=== PATIENT | male | born 1960 | race Caucasian/White ===

== ENCOUNTER 2024-09-07 14:19 | Emergency (ER) | payer MEDICARE, MEDICAID ==
[~2024-09-07] VITALS: Ht 175.3 cm; Wt 95.5 kg
[~2024-09-07 14:19] MED LIST: AMLO-257 PO; ATOR40TA71 PO; CARV25 PO; FENO54TA7 PO; HYDR-4808 PO; HYDR25TA PO; LEVO50 PO; LOSA-382 PO; MEMA5TAB41 PO; QUET100T34 PO; VENL-67 PO
[2024-09-07 15:32] LABS: BASOPHILS % (AUTO) 0.7 % (0.0-2.0); EOSINOPHILS % (AUTO) 3.4 % (1.0-6.0); HEMATOCRIT 46.5 % (41-53); HEMOGLOBIN 15.6 g/dL (13.5-17.5); LYMPHOCYTES # (AUTO) 1.5 K/uL (1.0-4.8); LYMPHOCYTES % (AUTO) 17.2 % (22.0-44.0); MEAN CORPUSCULAR HEMOGLOBIN 28.4 pg (26.0-34.0); MEAN CORPUSCULAR HGB CONC 33.5 G/dL (31.0-37.0); MEAN CORPUSCULAR VOLUME 85 fL (80-100); MONOCYTES # (AUTO) 0.7 K/uL (0.1-1.0); NEUTROPHILS % (AUTO) 70.7 % (40.0-70.0); PLATELET COUNT (AUTO) 178 K/uL (150-450); RED BLOOD CELL COUNT(AUTO) 5.48 MIL/uL (4.50-5.90); RED CELL DISTRIBUTION WIDTH 14.5 % (11.5-14.5); WHITE BLOOD COUNT (AUTO) 8.5 K/uL (4.5-11.0)
[2024-09-07 15:36] LABS: ANION GAP 10 mmol/L (8-16); CALCIUM, TOTAL 9.4 mg/dL (8.8-10.5); CARBON DIOXIDE 25 mmol/L (22-29); CHLORIDE 100 mmol/L (98-107); CREATININE 1.28 mg/dL (0.60-1.30); GLOMERULAR FILTR. RATE CALC 57 mL/min (>60); GLUCOSE,RANDOM 132 mg/dL (70-110); POTASSIUM 3.7 mmol/L (3.5-5.1); SODIUM SERUM 135 mmol/L (136-145); UREA NITROGEN, BLOOD 17 mg/dL (7-18)
[2024-09-07 15:39] VITALS: BP 153/93; PULSE 83; RESP 16; TEMP 98; O2SAT 97
[2024-09-07 15:53] LABS: COVID AG,FIA SOURCE NASAL SWAB
[2024-09-07 15:56] LABS: APPEARANCE,URINE CLEAR (CLEAR); BILIRUBIN,URINE NEGATIVE (NEGATIVE); COLOR,URINE COLORLESS (YELLOW); GLUCOSE, URINE (UA) >=1000 mg/dL (NEGATIVE); KETONES,URINE NEGATIVE (NEGATIVE); LEUKOCYTE ESTERASE ,URINE NEGATIVE (NEGATIVE); NITRATE,URINE NEGATIVE (NEGATIVE); OCCULT BLOOD,URINE NEGATIVE (NEGATIVE); PROTEIN,URINE NEGATIVE (NEGATIVE); SPECIFIC GRAVITIY, URINE 1.004 (1.003-1.030); UROBILINOGEN,URINE <=1.0 mg/dL (<=1.0)
[2024-09-07 16:09] LABS: ALCOHOL, BLOOD (SERUM) < 3 mg/dL (0-10)
[2024-09-07 16:09] LABS: AMPHET/METH SCREEN,URINE NEGATIVE (NEGATIVE); BARBITURATE SCREEN, URINE NEGATIVE (NEGATIVE); BENZODIAZEPINES SCREEN,URINE NEGATIVE (NEGATIVE); CANNABINOID SCREEN,URINE NEGATIVE (NEGATIVE); COCAINE SCREEN,URINE NEGATIVE (NEGATIVE); METHADONE SCREEN, URINE NEGATIVE (NEGATIVE); OPIATE SCREEN,URINE NEGATIVE (NEGATIVE); PHENCYCLIDINE SCREEN,URINE NEGATIVE (NEGATIVE)
[2024-09-07 16:10] LABS: ALCOHOL, URINE DRUG SCREEN NEGATIVE (NEGATIVE); BACTERIA,URINE Few /HPF (None Seen); RBC,URINE 0-2 /HPF (0-2); WBC,URINE 0-2 /HPF (0-5)
[2024-09-07 16:11] LABS: SQUAMOUS EPITHELIAL CELL,UR Rare /LPF (None Seen)
[2024-09-07 16:38] LABS: SARS-COV2 (COVID) ANTIGEN,FIA Negative (Negative)
[2024-09-07] MEDS: LORazepam 2 MG TABLET PO ONE (17:58)
[2024-09-07] MEDS: HALOPERIDOL 5 MG TABLET PO ONE (17:58)
[2024-09-07] MEDS: DiphenhydrAMINE HCL 25 MG CAPSULE PO ONE (17:58)
== END 2024-09-07 20:09 | disposition home or self-care (01) ==
LOC: EMS 15:03
DX: F20.0 Paranoid schizophrenia (principal); F03.92 Unspecified dementia, unspecified severity, with psychotic disturbance; Z79.899 Other long term (current) drug therapy; Z20.822 Contact with and (suspected) exposure to COVID-19
CPT/HCPCS: 99284; 87426; 80048; 81001; 85025; 36415; 80307; G0480; 81003

== ENCOUNTER 2024-12-12 18:11 | Inpatient (IN) | payer MEDICARE, MEDICAID ==
[~2024-12-12] VITALS: Ht 177.8 cm; Wt 79.6 kg
[2024-12-12 19:39] LABS: BASOPHILS % (AUTO) 0.8 % (0.0-2.0); EOSINOPHILS % (AUTO) 3.9 % (1.0-6.0); HEMATOCRIT 43.5 % (41-53); HEMOGLOBIN 14.5 g/dL (13.5-17.5); LYMPHOCYTES # (AUTO) 2.1 K/uL (1.0-4.8); LYMPHOCYTES % (AUTO) 18.9 % (22.0-44.0); MEAN CORPUSCULAR HGB CONC 33.2 G/dL (31.0-37.0); MEAN CORPUSCULAR VOLUME 84 fL (80-100); MONOCYTES # (AUTO) 0.8 K/uL (0.1-1.0); NEUTROPHILS # (AUTO) 7.6 K/uL (1.8-7.7); NEUTROPHILS % (AUTO) 69.4 % (40.0-70.0); PLATELET COUNT (AUTO) 152 K/uL (150-450); RED BLOOD CELL COUNT(AUTO) 5.16 MIL/uL (4.50-5.90); RED CELL DISTRIBUTION WIDTH 14.8 % (11.5-14.5); WHITE BLOOD COUNT (AUTO) 10.9 K/uL (4.5-11.0)
[2024-12-12 19:48] LABS: ANION GAP 7 mmol/L (8-16); CALCIUM, TOTAL 8.8 mg/dL (8.8-10.5); CARBON DIOXIDE 24 mmol/L (22-29); CHLORIDE 103 mmol/L (98-107); CREATININE 1.02 mg/dL (0.60-1.30); GLOMERULAR FILTR. RATE CALC > 60 mL/min (>60); GLUCOSE,RANDOM 123 mg/dL (70-110); POTASSIUM 3.7 mmol/L (3.5-5.1); SODIUM SERUM 134 mmol/L (136-145); UREA NITROGEN, BLOOD 16 mg/dL (7-18)
[2024-12-12 21:00] VITALS: O2SAT 96
[2024-12-12 21:35] LABS: COVID AG,FIA SOURCE NASAL SWAB
[2024-12-12 21:40] LABS: APPEARANCE,URINE CLEAR (CLEAR); BILIRUBIN,URINE NEGATIVE (NEGATIVE); COLOR,URINE COLORLESS (YELLOW); GLUCOSE, URINE (UA) NEGATIVE (NEGATIVE); KETONES,URINE NEGATIVE (NEGATIVE); LEUKOCYTE ESTERASE ,URINE NEGATIVE (NEGATIVE); NITRATE,URINE NEGATIVE (NEGATIVE); OCCULT BLOOD,URINE NEGATIVE (NEGATIVE); PROTEIN,URINE NEGATIVE (NEGATIVE); SPECIFIC GRAVITIY, URINE 1.006 (1.003-1.030); UROBILINOGEN,URINE <=1.0 mg/dL (<=1.0)
[2024-12-12 21:43] LABS: AMPHET/METH SCREEN,URINE NEGATIVE (NEGATIVE); BARBITURATE SCREEN, URINE NEGATIVE (NEGATIVE); BENZODIAZEPINES SCREEN,URINE NEGATIVE (NEGATIVE); CANNABINOID SCREEN,URINE NEGATIVE (NEGATIVE); COCAINE SCREEN,URINE NEGATIVE (NEGATIVE); METHADONE SCREEN, URINE NEGATIVE (NEGATIVE); OPIATE SCREEN,URINE NEGATIVE (NEGATIVE); PHENCYCLIDINE SCREEN,URINE NEGATIVE (NEGATIVE)
[2024-12-12 21:45] LABS: ALCOHOL, URINE DRUG SCREEN NEGATIVE (NEGATIVE)
[2024-12-12 21:56] LABS: SARS-COV2 (COVID) ANTIGEN,FIA Negative (Negative)
[2024-12-13] MEDS ORDERED: haloperidoL 5 MG TABLET PO PRN (00:30)
[2024-12-13 02:30] VITALS: BP 140/82; PULSE 53; RESP 18; TEMP 97.3; O2SAT 100
[2024-12-13] MEDS ORDERED: PETROLATUM,WHITE 28 GM JELLY TP PRN (09:30)
[2024-12-13] MEDS: LOSARTAN POTASSIUM 50 MG TABLET PO SCH (09:30)
[2024-12-13] MEDS ORDERED: DOCUSATE SODIUM 100 MG CAPSULE PO PRN (09:30)
[2024-12-13] MEDS ORDERED: BENZOCAINE/MENTHOL [CEPACOL] LOZENGE PO PRN (09:30)
[2024-12-13] MEDS ORDERED: MAGNESIUM HYDROXIDE SUSPENSION 30 ML UDCUP PO PRN ×2 (09:30→10:45)
[2024-12-13] MEDS: AmLODIPine BESYLATE 5 MG TABLET PO SCH (09:30)
[2024-12-13] MEDS ORDERED: ACETAMINOPHEN 325 MG TABLET PO PRN ×2 (09:30→10:45)
[2024-12-13] MEDS ORDERED: MAG HYDROX/ALUMINUM HYD/SIMETH ES 30 ML SUSPENSION UDCUP PO PRN ×2 (09:30→10:45)
[2024-12-13] MEDS ORDERED: ALBUTEROL SULFATE HFA 90 MCG/PUFF 8 GM INHALER IH PRN (09:30)
[2024-12-13] MEDS ORDERED: BACITRACIN 28 GM OINTMENT TP PRN (09:30)
[2024-12-13] MEDS ORDERED: OMEPRAZOLE 20 MG CAPSULE PO PRN (09:30)
[2024-12-13] MEDS ORDERED: IBUPROFEN 600 MG TABLET PO PRN (09:30)
[2024-12-13] MEDS ORDERED: ONDANSETRON 4 MG TABLET PO PRN (09:30)
[2024-12-13] MEDS ORDERED: CloNIDine HCL 0.1 MG TABLET PO PRN (09:30)
[2024-12-13] MEDS ORDERED: LOPERAMIDE HCL 2 MG CAPSULE PO PRN ×2 (09:30→10:45)
[2024-12-13 09:45] VITALS: BP 96/61; PULSE 67; RESP 17; TEMP 97; O2SAT 96
[2024-12-13] MEDS: FENOFIBRATE 54 MG TABLET PO SCH (10:34)
[2024-12-13] MEDS: ATORVASTATIN CALCIUM 40 MG TABLET PO SCH (10:38)
[2024-12-13] MEDS ORDERED: GuaiFENesin/D-METHORPHAN [SUGAR-FREE] 200-20MG/10 ML SYRUP UDCUP PO PRN (10:45)
[2024-12-13] MEDS ORDERED: TUBERCULIN, PURIFIED PROTEIN DERIVATIVE 5 TU/0.1 ML SYRINGE ID ONE (10:45)
[2024-12-13] MEDS ORDERED: PROMETHAZINE HCL 25 MG TABLET PO PRN (10:45)
[2024-12-13] MEDS ORDERED: DEXTROSE 50%-WATER 25 GM/50 ML SYRINGE IVP PRN (11:15)
[2024-12-13] MEDS: INSULIN LISPRO 100 UNITS/ML SQ PRN (16:33)
[2024-12-13 16:41] LABS: GLUCOMETER DEV NAME(LOC) 3EX.2; GLUCOSE,POINT OF CARE 118 MG/DL (70-110)
[2024-12-13] MEDS: MetFORMIN HCL 500 MG TABLET PO SCH (17:23)
[2024-12-13] MEDS: THIAMINE 100 MG TABLET PO SCH (17:23)
[2024-12-13 20:35] LABS: GLUCOMETER DEV NAME(LOC) 3E.I 2; GLUCOSE,POINT OF CARE 146 MG/DL (70-110)
[2024-12-13] MEDS: DULoxetine HCL 20 MG CAPSULE PO SCH (21:07)
[2024-12-13] MEDS: MELATONIN 5 MG TABLET PO SCH (21:08)
[2024-12-13] MEDS: OLANZapine 5 MG RAPDIS TABLET PO SCH (21:08)
[2024-12-13 22:49] VITALS: BP 121/66; PULSE 60; RESP 18; TEMP 98; O2SAT 98
[2024-12-14] MEDS: haloperidoL LACTATE 5 MG/ML VIAL IM ONE (00:41)
[2024-12-14] MEDS: DiphenhydrAMINE HCL 50 MG/ML VIAL IM ONE (00:41)
[2024-12-14] MEDS: LORazepam 2 MG/ML VIAL IM ONE (00:43)
[2024-12-14 06:36] LABS: GLUCOMETER DEV NAME(LOC) 3E.I 2; GLUCOSE,POINT OF CARE 111 MG/DL (70-110)
[2024-12-14] MEDS: LEVOTHYROXINE SODIUM 50 MCG TABLET PO SCH (06:38)
[2024-12-14 09:27] VITALS: BP 111/75; PULSE 88; RESP 18; TEMP 97; O2SAT 100
[2024-12-14] MEDS: MULTIVITAMINS WITH MINERALS, THERAPEUTIC TABLET PO SCH (10:08)
[2024-12-14] MEDS: MEMANTINE HCL 5 MG TABLET PO SCH (10:09)
[2024-12-14] MEDS: FOLIC ACID 1 MG TABLET PO SCH (10:09)
[2024-12-14 11:46] LABS: GLUCOMETER DEV NAME(LOC) 3E.I 2; GLUCOSE,POINT OF CARE 173 MG/DL (70-110)
[2024-12-14 16:31] LABS: CHOL/HDL RATIO 3.1 (4.2-7.3); FREE T4 (FREE THYROXINE) 0.84 ng/dL (0.76-1.46); THYROID STIMULATING HORMONE 2.71 uIU/mL (0.36-3.74)
[2024-12-14 16:33] LABS: HEMOGLOBIN A1C 6.5 % (3.8-5.6)
[2024-12-14] MEDS: DIVALPROEX SODIUM 500 MG ER TABLET PO SCH (17:24)
[2024-12-14] MEDS: OLANZapine 10 MG RAPDIS TABLET PO SCH (20:13)
[2024-12-14 20:26] LABS: GLUCOMETER DEV NAME(LOC) 3E.I 2; GLUCOSE,POINT OF CARE 170 MG/DL (70-110)
[2024-12-14 23:18] VITALS: BP 112/76; PULSE 81; RESP 20; TEMP 97.7; O2SAT 99
[2024-12-15 06:31] LABS: GLUCOMETER DEV NAME(LOC) 3E.I 2; GLUCOSE,POINT OF CARE 100 MG/DL (70-110)
[2024-12-15 11:30] LABS: GLUCOMETER DEV NAME(LOC) 3E.I 2; GLUCOSE,POINT OF CARE 148 MG/DL (70-110)
[2024-12-15 13:22] VITALS: BP 127/72; PULSE 60; RESP 18; TEMP 97.9; O2SAT 99
[2024-12-15 16:36] LABS: GLUCOMETER DEV NAME(LOC) 3EX.2; GLUCOSE,POINT OF CARE 98 MG/DL (70-110)
[2024-12-15] MEDS: OLANZapine 5 MG RAPDIS TABLET PO PRN (17:52)
[2024-12-15] MEDS: LORazepam 2 MG TABLET PO PRN (17:52)
[2024-12-15] MEDS: DiphenhydrAMINE HCL 50 MG/ML VIAL IM ONE (18:21)
[2024-12-15] MEDS: LORazepam 2 MG/ML VIAL IM ONE (18:22)
[2024-12-15] MEDS: haloperidoL LACTATE 5 MG/ML VIAL IM ONE (18:23)
[2024-12-15 21:26] LABS: GLUCOMETER DEV NAME(LOC) 3E.C; GLUCOSE,POINT OF CARE 150 MG/DL (70-110)
[2024-12-15 23:31] VITALS: BP 137/67; PULSE 69; RESP 18; TEMP 97.9; O2SAT 98
[2024-12-15] MEDS: HydrOXYzine PAMOATE 50 MG CAPSULE PO PRN (23:33)
[2024-12-16 06:51] LABS: GLUCOMETER DEV NAME(LOC) 3E.C; GLUCOSE,POINT OF CARE 123 MG/DL (70-110)
[2024-12-16] MEDS: TAMSULOSIN HCL 0.4 MG CAPSULE PO SCH (09:17)
[2024-12-16 10:51] VITALS: RESP 18
[2024-12-16 11:56] LABS: GLUCOMETER DEV NAME(LOC) 3E.C; GLUCOSE,POINT OF CARE 92 MG/DL (70-110)
[2024-12-16 17:06] LABS: GLUCOMETER DEV NAME(LOC) 3E.C; GLUCOSE,POINT OF CARE 217 MG/DL (70-110)
[2024-12-16 20:10] LABS: GLUCOMETER DEV NAME(LOC) 3E.C; GLUCOSE,POINT OF CARE 96 MG/DL (70-110)
[2024-12-16 21:34] VITALS: BP 123/73; PULSE 54; RESP 18; TEMP 97.7; O2SAT 97
[2024-12-17] MEDS: ZOLPIDEM TARTRATE 10 MG TABLET PO PRN (01:32)
[2024-12-17 06:16] LABS: GLUCOMETER DEV NAME(LOC) 3E.C; GLUCOSE,POINT OF CARE 176 MG/DL (70-110)
[2024-12-17 08:33] LABS: BASOPHILS % (AUTO) 0.5 % (0.0-2.0); EOSINOPHILS % (AUTO) 2.7 % (1.0-6.0); HEMATOCRIT 39.7 % (41-53); HEMOGLOBIN 13.5 g/dL (13.5-17.5); LYMPHOCYTES # (AUTO) 2.5 K/uL (1.0-4.8); LYMPHOCYTES % (AUTO) 22.8 % (22.0-44.0); MEAN CORPUSCULAR HEMOGLOBIN 28.6 pg (26.0-34.0); MEAN CORPUSCULAR VOLUME 84 fL (80-100); MONOCYTES % (AUTO) 9.5 % (2.0-9.0); NEUTROPHILS % (AUTO) 64.5 % (40.0-70.0); PLATELET COUNT (AUTO) 130 K/uL (150-450); RED BLOOD CELL COUNT(AUTO) 4.72 MIL/uL (4.50-5.90); RED CELL DISTRIBUTION WIDTH 14.7 % (11.5-14.5); WHITE BLOOD COUNT (AUTO) 10.9 K/uL (4.5-11.0)
[2024-12-17 08:50] LABS: ALANINE AMINOTRANSFERASE 21 U/L (12-78); ALBUMIN 3.2 g/dL (3.4-5.0); ALKALINE PHOSPHATASE 101 U/L (46-116); ANION GAP 5 mmol/L (8-16); ASPARTATE AMINOTRANSFERASE 37 U/L (15-37); BILIRUBIN,TOTAL 0.7 mg/dL (0.1-1.0); CALCIUM, TOTAL 8.7 mg/dL (8.8-10.5); CARBON DIOXIDE 27 mmol/L (22-29); CHLORIDE 103 mmol/L (98-107); CREATININE 0.96 mg/dL (0.60-1.30); GLOMERULAR FILTR. RATE CALC > 60 mL/min (>60); GLUCOSE,RANDOM 131 mg/dL (70-110); POTASSIUM 3.5 mmol/L (3.5-5.1); SODIUM SERUM 135 mmol/L (136-145); UREA NITROGEN, BLOOD 14 mg/dL (7-18)
[2024-12-17 09:22] LABS: PROSTATE SPECIFIC ANTIGEN 0.14 ng/mL (0.00-4.00)
[2024-12-17 12:05] LABS: GLUCOMETER DEV NAME(LOC) 3E.C; GLUCOSE,POINT OF CARE 106 MG/DL (70-110)
[2024-12-17] MEDS: QUEtiapine FUMARATE 25 MG TABLET PO SCH (13:20)
[2024-12-17 17:51] LABS: GLUCOMETER DEV NAME(LOC) 3E.C; GLUCOSE,POINT OF CARE 124 MG/DL (70-110)
[2024-12-17 20:15] LABS: GLUCOMETER DEV NAME(LOC) 3E.C; GLUCOSE,POINT OF CARE 146 MG/DL (70-110)
[2024-12-17] MEDS: DULoxetine HCL 20 MG CAPSULE PO SCH (20:38)
[2024-12-17 20:45] VITALS: BP 94/58; PULSE 74; RESP 16; TEMP 97.3; O2SAT 95
[2024-12-18 06:41] LABS: GLUCOMETER DEV NAME(LOC) 3E.C; GLUCOSE,POINT OF CARE 99 MG/DL (70-110)
[2024-12-18 09:26] VITALS: BP 130/89; PULSE 73; RESP 16; TEMP 96.9; O2SAT 98
[2024-12-18 12:41] LABS: GLUCOMETER DEV NAME(LOC) 3E.C; GLUCOSE,POINT OF CARE 168 MG/DL (70-110)
[2024-12-18 17:46] LABS: GLUCOMETER DEV NAME(LOC) 3E.C; GLUCOSE,POINT OF CARE 119 MG/DL (70-110)
[2024-12-18 20:46] LABS: GLUCOMETER DEV NAME(LOC) 3E.C; GLUCOSE,POINT OF CARE 161 MG/DL (70-110)
[2024-12-18 21:25] VITALS: BP 121/78; PULSE 75; RESP 17; TEMP 98.2; O2SAT 98
[2024-12-19 06:05] LABS: GLUCOMETER DEV NAME(LOC) 3E.C; GLUCOSE,POINT OF CARE 118 MG/DL (70-110)
[2024-12-19 08:39] VITALS: BP 150/85; PULSE 78; RESP 19; TEMP 97.9; O2SAT 99
[2024-12-19 11:50] LABS: GLUCOMETER DEV NAME(LOC) 3E.C; GLUCOSE,POINT OF CARE 157 MG/DL (70-110)
[2024-12-19 17:36] LABS: GLUCOMETER DEV NAME(LOC) 3E.C; GLUCOSE,POINT OF CARE 117 MG/DL (70-110)
[2024-12-19 20:00] VITALS: BP 110/72; PULSE 71; RESP 20; TEMP 97.1; O2SAT 99
[2024-12-19 20:36] LABS: GLUCOMETER DEV NAME(LOC) 3E.C; GLUCOSE,POINT OF CARE 132 MG/DL (70-110)
[2024-12-20 06:46] LABS: GLUCOMETER DEV NAME(LOC) 3E.C; GLUCOSE,POINT OF CARE 95 MG/DL (70-110)
[2024-12-20 09:10] VITALS: RESP 17; TEMP 96.9
[2024-12-20 09:45] VITALS: BP 126/77; PULSE 82; RESP 18; TEMP 97.7; O2SAT 99
[2024-12-20 11:31] LABS: GLUCOMETER DEV NAME(LOC) 3E.C; GLUCOSE,POINT OF CARE 158 MG/DL (70-110)
[2024-12-20 16:40] LABS: GLUCOMETER DEV NAME(LOC) 3E.C; GLUCOSE,POINT OF CARE 112 MG/DL (70-110)
[2024-12-20] MEDS ORDERED: QUEtiapine FUMARATE 100 MG TABLET PO PRN (18:30)
[2024-12-20 20:56] LABS: GLUCOMETER DEV NAME(LOC) 3E.C; GLUCOSE,POINT OF CARE 130 MG/DL (70-110)
[2024-12-20 22:29] VITALS: BP 122/82; PULSE 95; RESP 18; TEMP 97.7; O2SAT 97
[2024-12-21 06:15] LABS: GLUCOMETER DEV NAME(LOC) 3E.C; GLUCOSE,POINT OF CARE 107 MG/DL (70-110)
[2024-12-21] MEDS: QUEtiapine FUMARATE 25 MG TABLET PO SCH (09:53)
[2024-12-21] MEDS: DIVALPROEX SODIUM 250 MG ER TABLET PO SCH (09:54)
[2024-12-21 11:40] LABS: GLUCOMETER DEV NAME(LOC) 3E.C; GLUCOSE,POINT OF CARE 111 MG/DL (70-110)
[2024-12-21 15:29] VITALS: BP 137/87; PULSE 76; RESP 19; O2SAT 100
[2024-12-21 17:10] LABS: GLUCOMETER DEV NAME(LOC) 3E.C; GLUCOSE,POINT OF CARE 145 MG/DL (70-110)
[2024-12-21 20:30] LABS: GLUCOMETER DEV NAME(LOC) 3E.C; GLUCOSE,POINT OF CARE 116 MG/DL (70-110)
[2024-12-21 21:28] VITALS: BP 147/90; PULSE 110; RESP 18; TEMP 97.5; O2SAT 100
[2024-12-22 06:40] LABS: GLUCOMETER DEV NAME(LOC) 3E.C; GLUCOSE,POINT OF CARE 116 MG/DL (70-110)
[2024-12-22] MEDS: QUEtiapine FUMARATE 25 MG TABLET PO SCH (10:00)
[2024-12-22 11:55] LABS: GLUCOMETER DEV NAME(LOC) 3E.C; GLUCOSE,POINT OF CARE 121 MG/DL (70-110)
[2024-12-22 12:54] VITALS: BP 123/85; PULSE 80; RESP 18; TEMP 97.3; O2SAT 98
[2024-12-22 17:00] LABS: GLUCOMETER DEV NAME(LOC) 3E.C; GLUCOSE,POINT OF CARE 131 MG/DL (70-110)
[2024-12-22 20:10] LABS: GLUCOMETER DEV NAME(LOC) 3E.C; GLUCOSE,POINT OF CARE 100 MG/DL (70-110)
[2024-12-22 23:28] VITALS: BP 119/73; PULSE 73; RESP 18; TEMP 97.6; O2SAT 96
[2024-12-23 07:16] LABS: GLUCOMETER DEV NAME(LOC) 3E.C; GLUCOSE,POINT OF CARE 84 MG/DL (70-110)
[2024-12-23 09:15] VITALS: BP 137/80; PULSE 84; RESP 18; TEMP 97.8; O2SAT 97
[2024-12-23] MEDS ORDERED: MEMA5TAB41 PO (09:43)
[2024-12-23] MEDS ORDERED: DIVA-85 PO (09:43)
[2024-12-23] MEDS ORDERED: MELA5TAB40 PO (09:43)
[2024-12-23] MEDS ORDERED: QUET25TA36 PO (09:43)
[2024-12-23] MEDS ORDERED: DULO20CA30 PO (09:43)
[2024-12-23] MEDS ORDERED: METF-1211 PO (10:23)
[2024-12-23] MEDS ORDERED: TAMS0.4C94 PO (10:24)
[2024-12-23 11:56] LABS: GLUCOMETER DEV NAME(LOC) 3E.C; GLUCOSE,POINT OF CARE 130 MG/DL (70-110)
[2024-12-23 16:46] LABS: GLUCOMETER DEV NAME(LOC) 3E.C; GLUCOSE,POINT OF CARE 130 MG/DL (70-110)
== END 2024-12-23 16:23 | DRG 885 ==
LOC: EMS 18:11 → 3EI 12-13 02:29 → 3EC 12-15 18:50
PROVIDERS: ADMIT Psychiatry & Neurology Psychiatry; ATTEND Psychiatry & Neurology Psychiatry
PROC: GZHZZZZ Group Psychotherapy (ICD-10-PCS; principal; 2024-12-13)
PROC: GZ58ZZZ Individual Psychotherapy, Cognitive-Behavioral (ICD-10-PCS; 2024-12-13)
PROC: GZ56ZZZ Individual Psychotherapy, Supportive (ICD-10-PCS; 2024-12-14)
DX: F25.0 Schizoaffective disorder, bipolar type (principal); F03.94 Unspecified dementia, unspecified severity, with anxiety; F03.93 Unspecified dementia, unspecified severity, with mood disturbance; F03.911 Unspecified dementia, unspecified severity, with agitation; Z20.822 Contact with and (suspected) exposure to COVID-19; E11.9 Type 2 diabetes mellitus without complications; E03.9 Hypothyroidism, unspecified; I10 Essential (primary) hypertension; G47.00 Insomnia, unspecified; E78.5 Hyperlipidemia, unspecified; F17.200 Nicotine dependence, unspecified, uncomplicated; Z91.148 Patient's other noncompliance with medication regimen for other reason; Z91.018 Allergy to other foods
CPT/HCPCS: 80048; 80053; 80061; 80164; 80307; 81003; 82962; 83036; 84153; 84439; 84443; 85025; 86592; 87081; 99285; G0480; J1200; J1630; J2060